=== PATIENT | female | born 1965 | race Two or more races ===

== ENCOUNTER 2024-05-28 07:07 | Emergency (ER) | payer MEDICAID, SELFPAY ==
[2024-05-28 07:27] VITALS: BP 129/86; PULSE 93; RESP 18; TEMP 37.4; O2SAT 98; BMI 35.4
--- NOTE | 2024-05-28 07:31 | XR_ITS ---
Examination: PA lateral chest 2 views TECHNIQUE: Upright PA lateral chest 2 views Exam date and time: May 28, 2024 0739 hours INDICATIONS: Coughing beginning 3 weeks ago. FINDINGS: Minor accentuation basilar bronchovascular markings Normal heart size No pneumonia or pulmonary edema IMPRESSION: Mild basilar bronchitis pattern
--- NOTE | 2024-05-28 07:32 | PD.EDRME ---
Rapid Medical Screening Exam RME Arrival date/time: 05/28/24 07:07 58-year-old female presents emergency department complains of cough, congestion, body aches and lower back pain Chief Complaint: Back Pain/Injury Time Seen by Provider: 05/28/24 07:10 Vital signs: Vital Signs Temperature 99.3 F 05/28/24 07:27 Pulse Rate 93 05/28/24 07:27 Respiratory Rate 18 05/28/24 07:27 Blood Pressure 129/86 H 05/28/24 07:27 Pulse Oximetry (%) 98 05/28/24 07:27 Oxygen Delivery Method Room Air 05/28/24 07:27
[2024-05-28 08:30] LABS: Collection Type, Urine Clean Catch
[2024-05-28 08:36] LABS: Basophils % (Auto) 0 % (0-2.5); Eosinophils # (Auto) 0.1 Thou/mm3 (0.0-0.5); Eosinophils % (Auto) 4 % (0-10); Hematocrit 39.5 % (36.0-46.0); Immature Granulocytes % (Auto) 0 % (0-0); Immature Granulocytes Auto 0.01 Thou/mm3 (0.00-0.00); Lymphocytes # (Auto) 0.4 Thou/mm3 (1.0-4.8); Lymphocytes % (Auto) 16 % (10-50); Mean Corpuscular HGB Conc 35.4 g/dl (31.0-37.0); Mean Corpuscular Hemoglobin 32.1 pg (25.0-35.0); Mean Corpuscular Volume 91 fL (80-100); Monocytes # (Auto) 0.3 Thou/mm3 (0.0-0.8); Monocytes % (Auto) 10 % (0-12); Neutrophils % (Auto) 70 % (37-80); Nucleated Red Blood Cell % 0 /100 WBC (0); Red Blood Count 4.36 Miln/mm3 (4.00-5.20)
[2024-05-28 08:49] LABS: Amphetamine/Methamp Scrn,U Positive (Negative); Barbiturate Screen,Urine Negative (Negative); Benzodiazepines Screen,Urine Negative (Negative); Benzoylecgonine Screen, Ur Negative (Negative); Fentanyl Screen,Urine Positive (Negative); Opiate Screen,Urine Negative (Negative); THC Screen,Urine Negative (Negative)
[2024-05-28 09:04] LABS: Alanine Aminotransferase 60 U/L (10-49); Albumin, Serum 3.4 gm/dL (3.4-4.8); Alkaline Phosphatase 109 U/L (46-116); Anion Gap 7 (7-16); Aspartate Amino Transferase 79 U/L (0-34); BUN/Creatinine Ratio 18 Ratio (12-20); Bilirubin,Total 1.1 mg/dL (0.3-1.2); Blood Urea Nitrogen 9 mg/dL (9-23); Calcium 8.5 mg/dL (8.3-10.6); Carbon Dioxide 25.1 mMol/L (20.0-31.0); Chloride 103 mMol/L (98-107); Creatinine (Component) 0.5 mg/dL (0.6-1.3); Estimated Creatinine Clearance 127.9 mL/min (>60); Globulin 3.4 gm/dL (2.3-3.5); Glucose 161 mg/dL (74-106); Lipase 40 U/L (12-53); Osmolality,Calculated 271 (275-295); Potassium 3.6 mMol/L (3.4-5.1); Sodium 135 mMol/L (136-145); Total Protein 6.8 gm/dL (5.7-8.2); eGFR > 60 See Note
[2024-05-28 09:12] LABS: Platelet Count 49 Thou/mm3 (140-440); White Blood Count 2.8 Thou/mm3 (3.6-11.0)
[2024-05-28 09:54] LABS: Bilirubin,Urine Negative (Negative); Blood,Urine Negative (Negative); Clarity,Urine Clear (Clear/Hazy); Color,Urine Yellow (Lt Yel-Yel); Culture Indicated,Urine Not Indicated; Glucose, Urine 4+ (Negative); Ketones,Urine Negative (Negative); Leukocyte Esterase,Urine Negative (Negative); Nitrite,Urine Negative (Negative); PH,Urine 7.5 (5.0-7.0); Protein,Urine Trace (Neg - Trace); RBC,Urine 2 /hpf (0-3); Specific Gravity,Urine 1.023 (1.001-1.035); Squamous Epithelial Cell,Urine 3 /hpf (0-5); WBC,Urine < 1 /hpf (0-5)
[2024-05-28] MEDS: ACETAMINOPHEN 500 MG TABLET 1000 MG PO (10:17)
--- NOTE | 2024-05-28 10:59 | PC.CC ---
Екатерина APARICIO was consulted by ESEQUIEL Webb regarding transportation back home for the patient. ALESSANDRA arranged [facility] for the patient to return back home.
[2024-05-28 12:52] LABS: Slide Review Platelets confirmed
--- NOTE | 2024-06-12 06:41 | EDNOTE_ITS ---
Upper Respiratory Inf. RME/HPI General Chief Complaint: Back Pain/Injury Stated Complaint: BACK PAIN X 3 WEAKS WHEN COUGHING Time Seen by Provider: 05/28/24 07:10 Arrival date/time: 05/28/24 07:07 58-year-old female with history of methamphetamine abuse presents emergency department complains of cough, congestion, body aches and lower back pain Limitations: no limitations RME / HPI RME / HPI Narrative: 05/28/24 07:07 58-year-old female presents emergency department complains of cough, congestion, body aches and lower back pain Related Data Previous Rx's ?Medication ?Instructions ?Recorded acetaminophen 325 mg tablet (Mapap 325 mg PO Q6HR PRN Pain #20 tabs 08/09/19 (acetaminophen)) alcohol swabs 1 pad topical QDAY #100 ea 0 08/09/19 blood-glucose meter (Accu-Chek #1 ea 09/21/19 Guide Glucose Meter) insulin glargine 100 unit/mL 10 unit (0.1 mL) subcut Q DAY #30 mL 09/21/19 subcutaneous solution (Lantus U-100 Insulin) insulin syringe-needle U-100 1 mL #10 ea 09/21/19 28 gauge x 1/2 (BD Insulin Syringe) lancets 23 gauge (Acti-Haja #25 ea 09/21/19 Lancets) metformin 1,000 mg tablet 1,000 mg PO BID #60 tabs sulfamethoxazole 800 1 tab PO BID #20 tabs mg-trimethoprim 160 mg tablet (Bactrim DS) azelastine 137 mcg (0.1 %) nasal 2 spray intranasal QD AY #30 mL 07/10/20 spray fluconazole 150 mg tablet 150 mg PO .x1 #1 tab 2 (Diflucan) acetaminophen 500 mg tablet 1,000 mg (2 x 500 mg) PO Q 6H PRN 06/16/21 (Tylenol Extra Strength) fever #60 tabs cefuroxime axetil 500 mg tablet 500 mg PO BID #14 tabs 06/16/21 ibuprofen 800 mg tablet 800 mg PO Q8H PRN pain #30 t abs 06/16/21 fluconazole 100 mg tablet 100 mg PO BID #6 tabs albuterol sulfate 90 mcg/actuation 1 puff inhalation Q ID PRN 08/12/22 aerosol inhaler shortness of breath or wheez ing #8.5 grams azithromycin 250 mg tablet See Rx Instructions PO .COM PLEX #6 08/12/22 (Zithromax Z-Richard) tabs prednisone 50 mg tablet 50 mg PO QDAY #7 tabs pseudoephedrine-guaifenesin ER 120 1 tab PO Q12H PRN c old symptoms 08/12/22 mg-1,200 mg tab,extend release #14 tabs 12hr (Mucus D) acetaminophen 500 mg capsule 1,000 mg (2 x 500 mg) PO Q8HR PRN 05/28/24 pain #30 caps benzonatate 100 mg capsule 100 mg PO TID #14 caps 05/10 01/01 Allergies Allergy/AdvReac Type Severity Reaction Status Date / Time No Known Allergies Allergy Verified 02/17/23 14:56 Review of Systems Review of Systems Systems Reviewed: All systems reviewed, normal except as documented Constitutional Constitutional: Reports system reviewed and no additional complaints, except as documented, Denies fever(s) and Reports headache(s) Eyes Eyes: Reports system reviewed and no additional complaints, except as documented and Denies blurry vision ENT Ears, Nose, Mouth, and Throat: Reports system reviewed and no additional complaints, except as documented, Reports headache(s), Reports nasal congestion and Reports nasal discharge Cardiovascular Cardiovascular: Reports system reviewed and no additional complaints, except as documented, Denies chest pain and Denies dyspnea Respiratory Respiratory: Reports system reviewed and no additional complaints, except as documented, Denies chest congestion, Reports cough and Denies dyspnea Gastrointestinal Gastrointestinal: Reports system reviewed and no additional complaints, except as documented, Denies abdominal pain and Denies nausea Genitourinary Genitourinary: Reports system reviewed and no additional complaints, except as documented, Denies pelvic pain and Reports other (Dysuria) Integumentary/Breasts Skin/Breast: Reports system reviewed and no additional complaints, except as documented and Denies rash Neurologic Neurologic: Reports system reviewed and no additional complaints, except as documented, Reports as per HPI and Reports headache(s) Past Medical History Past Medical History NEUROLOGIC: Negative Seizures CARDIAC: Positive Cardiac Disorders and Hypertension; Negative Congestive Heart Failure RESPIRATORY: Positive Asthma; Negative Chronic Obstructive Pulmonary Disease (COPD) GENITOURINARY: Negative Renal Disease ENDOCRINE: Positive Diabetes Mellitus Type 2; Negative Diabetes Mellitus Type 1 HEMATOLOGIC: Negative Sickle Cell Disease PSYCHO/SOCIAL: Positive Psychiatric Problems, Recreational Drug Use, Depression and Anxiety OTHER HISTORY: Negative Blood Transfusions, Blood Transfusion Reaction or Anesthesia Reactions Social History SMOKING STATUS: Current some day smoker SUBSTANCE USE: methamphetamine ED Exam General Limitations: Present no limitations General appearance: Present alert and in no apparent distress Head Head exam: Present atraumatic, normocephalic and normal inspection Eye Eye exam: Present normal appearance, PERRL and EOMI; Absent conjunctival injection ENT ENT exam: Present normal exam, normal oropharynx and mucous membranes moist Neck Neck exam: Present normal inspection, full ROM and trachea midline Chest Chest inspection: Present normal inspection and symmetric chest wall rise Respiratory Respiratory exam: Present normal lung sounds bilaterally; Absent respiratory distress Cardiovascular Cardiovascular exam: Present regular rate, normal rhythm and normal heart sounds Abdominal Exam Abdominal exam: Present soft and normal bowel sounds; Absent distention, tenderness, guarding, rebound, rigidity, Herndon's sign or tenderness at McBurney's Point Abdominal tenderness: Absent RUQ or RLQ Extremities Exam Extremities exam: Present normal inspection and full ROM Back Exam Back exam: Present normal inspection and full ROM Neurological Exam Neurological exam: Present alert, oriented X3 and CN II-XII intact Psychiatric Psychiatric exam: Present normal affect and normal mood Skin Skin exam: Present warm, dry, intact and normal color Course Quality Measures none Orders Category Date Time Status Bedside Influenza A&B Antigen Test NOW Care 05/28/24 10:03 Completed XR chest 2V Stat Exams 05/28/24 07:31 Completed CBC Stat Lab 05/28/24 08:14 Completed Comprehensive Metabolic Panel Stat Lab 05/28/24 08:14 Completed Drug Screen,Urine Stat Lab 05/28/24 08:25 Completed Lipase Stat Lab 05/28/24 08:14 Completed UA, C/S IF [Urinalysis, C/S if Indicated] Stat Lab 05/28/24 08:25 Completed Acetaminophen Tab [Tylenol ES Tab] Med 05/28/24 07:31 Discontinued 1,000 mg PO X1 ONE Vital Signs Vital signs: Vital Signs Temperature 99.3 F 05/28/24 07:27 Pulse Rate 93 05/28/24 07:27 Respiratory Rate 18 05/28/24 07:27 Blood Pressure 129/86 H 05/28/24 07:27 Pulse Oximetry (%) 98 05/28/24 07:27 Oxygen Delivery Method Room Air 05/28/24 07:27 O2 saturation 98% room air within normal limits Upper Respiratory Infection MDM Narrative MDM Narrative:: 58-year-old female with history of methamphetamine abuse presents emergency department complains of cough, congestion, body aches and lower back pain On exam patient does not appear ill or toxic in no acute distress Symptoms highly consistent with viral illness Patient checked for influenza which came back positive Lab work obtained no acute emergent findings noted Patient discharged home in no distress to follow-up with primary care doctor in the next 24 to 48 hours and for any worsening symptoms to return to the ER immediately Patient data External records reviewed:: [facility] previous records Clinical information provided by:: patient Social determinants that could affect healthcare access:: substance use Patient has the following chronic illnesses:: Substance abuse How is presenting disease/condition affected by chronic disease/condition?: exacerbated by Evaluation data The following diagnostics were reviewed and interpreted by me:: lab results and radiology exam(s) Lab and/or radiology exams considered but not ordered:: Labs radiology obtained Interpretation Summary: Reviewed by me Medications / Prescriptions Medications or Prescriptions considered but not ordered:: Given Medication administrations:: Medication Administration History Discontinued Medications Acetaminophen (Acetaminophen 500 Mg Tablet) 1,000 mg PO X1 ONE Stop: 05/28/24 07:32 Last Admin: 05/28/24 10:17 Dose: 1,000 mg Documented By: OA Given Consultations Consultation(s) initiated? (list below): No Diagnosis Upper Respiratory Differential Diagnosis: upper respiratory infection, sinusitis, viral infection and bronchitis Most likely diagnosis given after review of the tests above:: URI Admission Indicated Admission indicated?: not indicated Admission Request Was there a request for admission?: No Disposition Plan Disposition Plan: Discharge Discharge Attestation Discharge Attestation: The patient and all family members were given an opportunity to ask questions and understood the discharge instructions. Discharge instructions specifically effects, indications for sooner follow up or return to the emergency department, and the expected course of current diagnosis. Patient condition: Stable Discharge Plan Plan Patient Disposition: HOME (Self Care) Disposition Comment: Stable Prescriptions/Referrals Prescriptions/Med Rec: New benzonatate 100 mg capsule 100 mg PO TID Qty: 14 0RF acetaminophen 500 mg capsule 1,000 mg PO Q8HR PRN (Reason: pain) Qty: 30 0RF No Action acetaminophen [Mapap (acetaminophen)] 325 mg Tablet 325 mg PO Q6HR PRN (Reason: Pain) Qty: 20 0RF alcohol swabs pads, medicated 1 pad TOPICAL QDAY Qty: 100 0RF azelastine 137 mcg (0.1 %) aerosol,spray 2 spray intranasal QDAY Qty: 30 0RF Rx Instructions: administer into each nostril fluconazole [Diflucan] 150 mg tablet 150 mg PO .x1 Qty: 1 0RF cefuroxime axetil 500 mg tablet 500 mg PO BID Qty: 14 0RF ibuprofen 800 mg tablet 800 mg PO Q8H PRN (Reason: pain) Qty: 30 0RF acetaminophen [Tylenol Extra Strength] 500 mg tablet 1,000 mg PO Q6H PRN (Reason: fever) Qty: 60 0RF metformin 1,000 mg tablet 1,000 mg PO BID Qty: 60 0RF sulfamethoxazole-trimethoprim [Bactrim DS] 800-160 mg tablet 1 tab PO BID Qty: 20 0RF Lantus U-100 Insulin 100 unit/mL Solution 10 unit subcut QDAY Qty: 30 0RF (DME) blood-glucose meter [Accu-Chek Guide Glucose Meter] misc See Dose Instructions .ROUTE .MEDSUPPLY Qty: 1 0RF Dose Instruction: As directed Rx Instructions: As directed (DME) insulin syringe-needle U-100 [BD Insulin Syringe] 1 mL 28 gauge x 1/2 syringe See Dose Instructions .ROUTE .MEDSUPPLY Qty: 10 0RF Dose Instruction: As directed Rx Instructions: As directed (DME) Acti-Haja Lancets 23 gauge misc See Dose Instructions .ROUTE .MEDSUPPLY Qty: 25 0RF Dose Instruction: As directed Rx Instructions: As directed fluconazole 100 mg tablet 100 mg PO BID Qty: 6 0RF azithromycin [Zithromax Z-Richard] 250 mg tablet See Rx Instructions .ROUTE .COMPLEX Qty: 6 0RF Rx Instructions: For 250 mg dose pack: take 500 mg today (day 1), then 250 mg for 4 days (days 2-5) prednisone 50 mg tablet 50 mg PO QDAY Qty: 7 0RF albuterol sulfate 90 mcg/actuation HFA aerosol inhaler 1 puff inhalation QID PRN (Reason: shortness of breath or wheezing) Qty: 8.5 0RF pseudoephedrine-guaifenesin [Mucus D] 120-1,200 mg tablet extended release 12 hr 1 tab PO Q12H PRN (Reason: cold symptoms) Qty: 14 0RF Referrals: No Primary/Family,Physician [Primary Care Provider] - In 1 week Problem List Clinical Impression: Influenza, Bronchitis, Dysuria, Methamphetamine abuse Patient/Caregiver Discharge Instructions Education Materials: Dysuria Additional Instructions: Please follow up with your primary care doctor in the next 24-48hrs for any worsening symptoms return here immediately Print Language: Yoruba Stand Alone Forms: [facility] Award Info., Patient Portal Info Letter PA/HIDE OR SKIN BUFFER Supervising Physician PA/HIDE OR SKIN BUFFER Supervising Physician: Dr Boyd
== END 2024-05-28 13:27 | disposition home or self-care (01) ==
PROVIDERS: Nurse Practitioner Primary Care; Emergency Provider Emergency Medicine
DX: J11.1 Influenza due to unidentified influenza virus with other respiratory manifestations (principal); R30.0 Dysuria; F15.10 Other stimulant abuse, uncomplicated; I10 Essential (primary) hypertension; E11.9 Type 2 diabetes mellitus without complications; J45.909 Unspecified asthma, uncomplicated; F17.210 Nicotine dependence, cigarettes, uncomplicated
CPT/HCPCS: 36415; 71046; 80053; 80307; 81001; 83690; 85025; 87400; 87502; 99283; A9270